=== PATIENT | female | born 1945 | race Caucasian/White ===

== ENCOUNTER 2024-08-16 09:51 | Outpatient (OUT) | payer MEDICARE, SELFPAY ==
--- NOTE | 2024-08-16 09:56 | CA_ITS ---
Patient Name: COLE BERNAL MR#: [id number] : 1945 Exam Date: 08/16/2024 Ordering Doctor: DR KAILA PATEL M.D. ECHOCARDIOGRAM REPORT PROCEDURE: CA ECHO DOPPLER COMPLETE INDICATIONS: Aortic valve stenosis, hypertension, smoker COMPARISON: None. DESCRIPTION: COMPLETE ECHOCARDIOGRAM Real-time transthoracic echocardiography with 2D, M-mode, spectral and color flow Doppler performed. QUALITY: Technical quality was good. LEFT VENTRICLE: Normal chamber size. Moderate concentric hypertrophy. Normal systolic function. LV EF: Normal left ventricular ejection fraction, (>55%). DIASTOLIC: Grade I diastolic dysfunction. ATRIAL SEPTUM: Visually appears intact. LEFT ATRIUM: Moderate dilatation. RIGHT ATRIUM: Mild dilatation. RIGHT VENTRICLE: Normal chamber size. Normal right ventricular systolic function. TRICUSPID VALVE: Normal mobility and thickness. No stenosis with no regurgitation. MITRAL VALVE: Normal mobility and thickness. No evidence of mitral valve stenosis. Mild mitral annular calcification. Mild mitral regurgitation. AORTIC VALVE: Normal trileaflet appearance. Mildly calcified aortic valve. Mildly diminished mobility. No evidence of aortic valve stenosis. No aortic regurgitation. AORTIC ROOT: Normal diameter and appearance. Aortic arch is normal in size. PULMONIC VALVE: Normal thickness and mobility. No stenosis. No regurgitation. PERICARDIUM: No evidence of pericardial effusion. IVC: Collapses with inspirations. IVC is normal in size. PLEURA: CONCLUSION: 1. Moderate concentric left ventricular hypertrophy with normal systolic function. Estimated LVEF is 60 to 65%. 2. Normal right ventricular size and systolic function. 3. Grade 1 diastolic dysfunction. 4. Mild to moderate biatrial dilatation. 5. Mild mitral regurgitation. 6. Mildly calcified and sclerotic aortic valve without significant stenosis or regurgitation. Adult Echocardiography Procedure Report Left Ventricle LVEDD (3.7 - 5.6 cm): 4.26 cm LVESD (2.2 - 4.0 cm): 3.37 cm LVIVS thickness (0.6 - 1.2 cm): 1.83 cm LVPW thickness (0.5 - 1.0 cm): 1.20 cm e': 0.09 m/s E - e': 9.93 LVOT Max Gradient: 6.46 mm[Hg] LVOT Area (cm2): 1.27 m/s Peak Velocity (LVOT): 1.27 m/s Mean Velocity (LVOT): 0.92 m/s LVOT Diameter 2.32 cm Left Atrium LA Volume Index (2D A2C): 46.70 ml/m2 Left Atrium Systolic Dimension: 3.90 cm Mitral Valve MV E to A Ratio: 0.88 Mitral Valve A-Wave Peak Velocity: 0.97 m/s Mitral Valve E-Wave Peak Velocity: 0.86 m/s Right Ventricle Aorta AO Root Diam: 3.34 cm Aortic Valve AoV Area (Peak Alexandre): 3.15 cm2, 3.15 cm2 AoV Area (VTI): 3.20 cm2, 3.20 cm2 Peak Velocity(Antegrade Flow): 1.71 m/s, 1.15 m/s, 1.40 m/s Peak Gradient(Antegrade Flow): 11.64 mm[Hg], 5.32 mm[Hg], 7.79 mm[Hg] Mean Velocity(Antegrade Flow): 1.16 m/s, 0.71 m/s, 1.02 m/s Mean Gradient(Antegrade Flow): 6.11 mm[Hg], 2.57 mm[Hg], 4.61 mm[Hg] Velocity Time Integral: 41.61 cm, 25.09 cm, 36.39 cm Tricuspid Valve Pulmonic Valve Mean Gradient: 1.78 mm[Hg] Mean Velocity: 0.63 m/s Peak Velocity: 0.91 m/s, 0.85 m/s Peak Gradient: 2.92 mm[Hg], 3.32 mm[Hg] Right Atrium Right Atrium Systolic Pressure: 54.55 ml, 54.55 ml Dictated by: Kaila Patel M.D. on 08/16/2024 at 17:30 Approved by: Kaila Patel M.D. on 08/16/2024 at 17:48
== END 2024-08-16 09:52 | disposition home or self-care (01) ==
LOC: CARD 09:51
PROVIDERS: Visit Provider Internal Medicine Interventional Cardiology
DX: I35.0 Nonrheumatic aortic (valve) stenosis (principal)
CPT/HCPCS: 93306

== ENCOUNTER 2024-10-25 08:33 | Outpatient (OUT) | payer MEDICARE, OTHER, SELFPAY ==
[2024-10-25 09:35] LABS: Anion Gap 12.8; BUN Creatinine Ratio 20.8; Calcium 9.5 mg/dL (8.5-10.1); Carbon Dioxide 29.3 mmol/L (21.0-32.0); Chloride 103 mmol/L (98-107); Estimated GFR (African America >60 (>=60 mL/min/1.73m^2); Estimated GFR (Non-African Ame 56 (>=60 mL/min/1.73m^2); Glucose 111 mg/dL (74-106); Potassium 4.1 mmol/L (3.5-5.1); Sodium 141 mmol/L (136-145)
== END 2024-10-25 08:34 | disposition home or self-care (01) ==
LOC: LAB 08:37
PROVIDERS: PCP Family Medicine; Visit Provider Internal Medicine Interventional Cardiology
DX: I10 Essential (primary) hypertension (principal)
CPT/HCPCS: 36415; 80048